=== PATIENT | male | born 1960 | race Caucasian/White ===

== ENCOUNTER 2023-07-03 15:05 | Emergency (ER) | payer SELFPAY ==
[~2023-07-03] VITALS: Ht 182.9 cm; Wt 90.0 kg
[2023-07-03 15:06] VITALS: BP 148/78; PULSE 91; RESP 16; TEMP 98.5; O2SAT 100
[2023-07-03] MEDS ORDERED: DIAZEPAM 5 MG TABLET PO ONE (15:15)
[2023-07-03] MEDS ORDERED: KETOROLAC 60MG/2ML VIAL IM ONE (15:15)
== END 2023-07-03 18:02 | disposition left against medical advice (07) ==
LOC: ER 15:05
DX: M25.512 Pain in left shoulder (principal); M54.50 Low back pain, unspecified; J45.909 Unspecified asthma, uncomplicated; I10 Essential (primary) hypertension
CPT/HCPCS: 99283